=== PATIENT | male | born 1955 | race Caucasian/White ===

== ENCOUNTER 2024-05-12 13:58 | Outpatient (AMB) | payer MEDICARE, SELFPAY ==
--- NOTE | 2024-05-12 14:28 | HO.SPINEOV ---
Intake Visit Reasons: spinal stenosis Intake Note: Mr. Mcdonald is here today c/o numbness on both feet and Low back pain. 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 He is a pleasant 68-year-old male who is recently retired from a lifetime career working at a [employer]. He comes in today with a chief complaint of low back pain and difficulty with activity/ambulation. He states that this has worsened over the course of the past year, but has been ongoing for several years. He denies any radicular/shooting pains into his bilateral lower extremities. It is now to the point where he feels fatigued/tired and experiences pain in his low back when he completes his activities of daily living. This includes grocery shopping, dishes, and cooking. Thankfully he is still able to push through the pain and complete these activities, but is very disruptive to his life. He does report a previous history of spine surgery, and states that he had 2 lumbar microdiskectomy completed 1 at a hospital in [place] and 1 at [facility]. He states that the level for both of these microdiskectomies was L5-S1 (will have [facility] staff obtain [facility] records). He has tried several medications in an effort to mitigate the pain including NSAIDs and muscle relaxers. He has seen a chiropractor and felt as though this was not helpful for him. He has been to physical therapy in the past but has not been for this injury as of yet. PMH: Hyperlipidemia, hypertension, AFib on clopidogrel, AAA, asthma, cholelithiasis, chronic pancreatitis, history of 2 microdiskectomy at L5-S1. Laparoscopic appendectomy, cataract surgery, tonsillectomy. History of hepatitis-C treated with interferon, right-sided olecranon bursitis, osteoarthritis of right knee. Social hx: The patient denies any smoking or substance use. Medications: Albuterol, aspirin, atorvastatin, baclofen, clopidogrel, metoprolol, furosemide, Creon, famotidine, flecainide. Allergies: Codeine. Physical exam: The patient has 5/5 strength in his upper and lower extremities. He has no significant sensational deficits. His reflexes are 2+ intact. He is able to ambulate well and rises from a seated position without difficulty. (-) bilateral straight leg raise, (-) Willis's, (-) clonus. Imaging review: MRI of the lumbar spine completed at [facility] shows severe central canal and bilateral foraminal stenosis at L3-4. There is severe loss of disc height at L4-5 with type 2 Modic endplate changes seen at this level. Impression: Benji is a pleasant 68-year-old male who comes in today with a chief complaint of low back pain and difficulty with ADLs/ambulation. 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 He has a history of 2 previous microdiskectomy done many years ago by both an [facility] in [place], and [facility]. I plan to have our director medical surgical obtain his surgical records from [facility] in an effort to clarify exactly what surgery he did have. In the interim I will also be sending him for a course of physical therapy as he has not attempted this as of yet. With that being said he does have very severe stenosis at L3-4, and in cases such as this Dr. Lee would typically offer a patient a L3-4 lumbar decompression. We will need to discuss his chronic medical conditions and ultimately Dr. Lee will need to decide if he is a good candidate for surgery before we make a decision. Thank you for allowing us to care for your patient. The total time spent with this visit with this patient was 45 minutes reviewing history, physical exam, MRI imaging review, and implementation of treatment plan or further diagnostic testing Fly Lee MD,PhD [facility] Orders: Orders PT Evaluation and Treatment Today M48.062 - Spinal stenosis, lumbar region with neurogenic claudication Coding Level of Care Code New Pt Level 4 (32961) Diagnoses Spinal stenosis of lumbar region with neurogenic claudication M48.062
== END 2024-05-12 15:08 | disposition home or self-care (01) ==
PROVIDERS: PCP Internal Medicine; Referring Provider Internal Medicine; Visit Provider Physician Assistant
DX: M48.062 Spinal stenosis, lumbar region with neurogenic claudication (principal)
CPT/HCPCS: 99204

== ENCOUNTER → 2024-05-12 13:58 | Outpatient (BNVA) | payer MEDICARE, SELFPAY | PROVIDERS: PCP Internal Medicine; Visit Provider Physician Assistant | DX: M48.062 Spinal stenosis, lumbar region with neurogenic claudication (principal); M17.11 Unilateral primary osteoarthritis, right knee | CPT/HCPCS: 99202 ==

== ENCOUNTER → 2024-05-27 14:48 | Outpatient (BNVA) | payer MEDICARE, SELFPAY | PROVIDERS: PCP Internal Medicine; Visit Provider Physician Assistant | DX: M48.062 Spinal stenosis, lumbar region with neurogenic claudication (principal) | CPT/HCPCS: 99212 ==

== ENCOUNTER → 2024-10-30 11:15 | Outpatient (BNVA) | payer MEDICARE, SELFPAY | PROVIDERS: PCP Internal Medicine; Visit Provider Surgery Vascular Surgery | DX: I65.22 Occlusion and stenosis of left carotid artery (principal); I71.43 Infrarenal abdominal aortic aneurysm, without rupture | CPT/HCPCS: 99202 ==

== ENCOUNTER 2024-12-09 | Outpatient (REF) | payer MEDICARE, SELFPAY ==
--- NOTE | 2024-12-09 | ECG_ITS ---
Test Reason : PRE OP Blood Pressure : */* mmHG Vent. Rate : 92 BPM Atrial Rate : * BPM P-R Int : * ms QRS Dur : 128 ms QT Int : 440 ms P-R-T Axes : * -71 37 degrees QTcB Int : 544 ms Atrial fibrillation Left axis deviation Right bundle branch block Inferior infarct , age undetermined Abnormal ECG No previous ECGs available Referred By: Kaila Campbell Electronically Signed By: Magdiel Coughlin
[2024-12-09 10:28] VITALS: BP 111/86; PULSE 90; RESP 16; O2SAT 97; BMI 27.0
--- NOTE | 2024-12-09 10:59 | P.CONAN_ITS ---
HPI - Anesthesia Eval Consult details Narrative: 69yo M for Left Carotid Endarterectomy, pending cardiac eval No recent illness. Chronic cough d/t phlegm in esophagus No CP/SOB with regular activity. Rare albuterol for SOB. No dx asthma/COPD, but former smoker s/p AAA repair with stent 2020 [facility] Active Problems Active Problems: All Active Problems Abdominal aortic aneurysm (Acute) Left carotid stenosis (Acute) Spinal stenosis of lumbar region with neurogenic claudication (Acute) Past Medical History Medical History (Updated 12/09/24 @ 11:31 by Francisca Tadeo, RN) No natural teeth Carotid stenosis Leukocytosis Chronic diastolic (congestive) heart failure PAF (paroxysmal atrial fibrillation) Hx of edema AAA (abdominal aortic aneurysm) Cough History of blood transfusion (2022) History of GI bleed (2022) Presence of Watchman left atrial appendage closure device Chronic hiccoughs Spinal stenosis of lumbar region Dizziness History of transesophageal echocardiography (ASAD) (06/2024) Macular degeneration GERD (gastroesophageal reflux disease) HLD (hyperlipidemia) HTN (hypertension) Family History Family history of problems with anesthesia: No Surgical History Surgical History (Updated 12/09/24 @ 11:31 by Francisca Tadeo, KALEB) Hx of bilateral cataract extraction (~2019) History of esophagogastroduodenoscopy (EGD) Hx of colonoscopy Hx of appendectomy (1965) History of spinal surgery Hx of tonsillectomy (~1979) S/P endovascular aneurysm repair (~2020) History of Problems with Anesthesia: No Social History Social History Are you a primary managed care specialist to a significant other at home: No Do you presently have visiting nurse or other home services: No Comment: aware of trip hazard Patient Tobacco Use Status: Former Tobacco user Tobacco use type: Cigarette Smoked in Last 30 Days: No Use of substances other than those prescribed or required for medical reasons: Yes Substance Use Type Other:: gummies marijuana Substance Use Frequency: Occasionally Have you been hit, kicked, punched, or otherwise hurt by someone within the past year? If so, by whom?: No Are you DNR?: No Advance Directives: No (will bring dos) Advance Directives Information Provided: No Advance Directives on File: No Recently lost weight without trying: No Poor oral hygiene: Yes (no teeth) Meds Allergies Allergy/AdvReac Type Severity Reaction Status Date / Time codeine AdvReac Severe Nausea and Verified 12/09/24 11:31 Vomiting Opioids - Morphine Analogues AdvReac Severe Nausea and Verified 12/09/24 11:31 Vomiting Home Medications ?Medication ?Instructions ?Recorded ?Confirmed ?Last Taken ?Type atorvastatin 80 mg tablet 80 mg PO BEDTIME 10/30/24 12/08/24 Unknown History famotidine 40 mg tablet 40 mg PO BEDTIME 10/30/24 12/08/24 Unknown History flecainide 100 mg tablet 100 mg PO Q12H 10/30/24 12/08/24 Unknown History furosemide 20 mg tablet 20 mg PO BID 10/30/24 12/08/24 Unknown History [id number] 1 cap PO QID 10/30/24 12/08/24 Unknown History 12,000-38,000-60,000 unit capsule,delayed rel (Creon) metoprolol succinate 50 mg 25 mg PO DAILY 10/30/24 12/08/24 Unknown History tablet,extended release 24 hr ferrous sulfate 325 mg (65 mg 325 mg PO DAILY 12/08/24 12/08/24 Unknown History iron) tablet (Iron (ferrous sulfate)) albuterol sulfate 90 mcg/actuation 2 puff inhalation Q4-6H PRN 12/09/24 12/09/24 Unknown History aerosol inhaler Shortness Of Breath Or Wheezing aspirin 81 mg chewable tablet 81 mg PO DAILY 12/09/24 12/09/24 Unknown History baclofen 10 mg tablet 10 mg PO TID 12/09/24 12/09/24 Unknown History vit C 250 mg-vit E 90 mg-zinc 40 1 tab PO BID 12/09/24 12/09/24 Unknown History mg-copper 1 [id number] capsule (PreserVision AREDS-2) Exam Height,Weight and Vital Signs: Height 5 ft 10 in Weight 85.275 kg Last Vital Signs Pulse 90 12/09/24 10:28 Resp 16 12/09/24 10:28 BP 111/86 12/09/24 10:28 Pulse Ox 97 12/09/24 10:28 O2 Del Method Room Air 12/09/24 10:28 Airway Loose/Missing/Broken Teeth: Yes (edentulous) Heart: RRR Lungs: CTAB Assessment and Plan Assessment Anesthesia Assessment: Anesthesia Plan Discussed and PAT Visit Final Anesthetic Review Family History of Problems with Anesthesia: No History of Problems with Anesthesia: No
[2024-12-09 13:28] LABS: Hematocrit 33.1 % (42.0-52.0); INTERNATIONAL NORM RATIO 1.2 (0.9-1.1); Mean Corpuscular HGB Conc 30.2 g/dl (31.0-36.0); Mean Corpuscular Hemoglobin 24.7 pg (27.0-33.0); Mean Corpuscular Volume 81.7 fL (80.0-98.0); Mean Platelet Volume 10.2 fL (9.4-12.4); Platelet Count 173 X10*3/uL (160-400); Prothrombin Time 14.5 SEC (10.9-12.4); Red Blood Count 4.05 X10*6/uL (4.60-5.80); Red Cell Distribution Width 20.1 % (11.0-16.0); White Blood Count 10.2 X10*3/uL (4.8-10.8)
[2024-12-09 13:30] LABS: Partial Thromboplastin Time 39.6 SEC (26.0-36.8)
[2024-12-09 13:50] LABS: Anion Gap 14 (12-20); Blood Urea Nitrogen 12 mg/dL (9-16); Calcium 8.5 mg/dL (8.4-10.2); Carbon Dioxide 33 mmol/L (22-29); Chloride 103 mmol/L (96-108); Creatinine Clr Calc Pharmacy 82.5; Estimated Glomerular Filt Rate > 60; Glucose Random 100 mg/dL (60-115); Potassium 3.9 mmol/L (3.3-5.1); Sodium 146 mmol/L (135-145)
--- OUTSIDE RECORDS SUMMARY | 2025-03-19 13:41 | XMS_ITS | Data Portability ---
Author Organization [facility], Telehealth Patient Home Address [address] [place] [address] Assessment Encounter Date Assessment Date Assessment LastModified by Organization Details LastModified Time 02/11/2025 02/11/2025 [address] [place] [address] (MEDICAL SERVICES ASSISTANT) MDM MODERATE MUST MEET 2 OUT OF 3 ELEMENTS: PROBLEMS, DATA OR RISK ELEMENT 1: PROBLEMS ADDRESSED 1 OR MORE CHRONIC ILLNESS WITH EXACERBATION OR 2 OR MORE STABLE CHRONIC ILLNESSES OR 1 UNDIAGNOSED NEW PROBLEM OR 1 ACUTE ILLNESS W/SYMPTOMS OR 1 ACUTE COMPLICATED INJURY ELEMENT 2: DATA MUST MEET 1 OF 3 CATEGORIES CATEGORY 1: REVIEW OF PRIOR EXTERNAL NOTES, REVIEW OF RESULTS, ORDERING OF EACH TEST, ASSESSMENT REQUIRING INDEPENDENT HISTORIAN OR CATEGORY 2: INDEPENDENT INTERPRETATION OF TESTS BY ANOTHER PHYSICIAN OR SPECIALIST OR CATEGORY 3: DISCUSSION OF MGT OR TEST INTERPRETATION W/EXTERNAL PHYSICIAN OR SPECIALIST ELEMENT 3: RISK RISK OF COMPLICATIONS AND/OR MORBIDITY OR MORTALITY OF PATIENT MANAGEMENT PROVIDER MUST THOROUGHLY DOCUMENT EACH ELEMENT THAT IS COVERED Not available 02/11/2025 16:55:09 Plan of Treatment Reminders Order Date Submit Date Provider Last Modified By Organization Details Last Modified Time Details Appointments FOLLOW UP 15 2024 09:30A M BRUCE CUELLAR Not available Not available Not available Lab None recorded. Referral orthopedi c surgeon referral 2023 024 mesha Lee MD, [address] [place] [address] [place], [address], 08/27/2024 08:54:22 vascular surgeon referral 2023 024 mesha [facility], Rae Richards, [place], [address], 08/27/2024 08:54:22 Procedures None recorded. Surgeries None recorded. Imaging MRI, lumbar spine, w/o contrast - hx of lumbar spine surgery 2023 024 hrubner Not available 03/31/2024 10:30:13 Medication Orders oxycodone 5 mg tablet 2023 025 [id number], [address], [place], [place], [id number], 01/14/2025 15:19:57 Patient TargetsNo targets recorded. Patient Instructions Encounter Date Encounter Id Patient Instructions Last Modified By Organization Details Last Modified Time 02/11/2025 [id number] leg and ankle edema: care instructions Not available 02/11/2025 16:59:34 high blood pressure: care instructions Not available 02/11/2025 16:59:34 learning about high blood pressure Not available 02/11/2025 16:59:34 atrial fibrillation: care instructions Not available 02/11/2025 16:59:34 Reason for Referral Vascular Surgeon Referral fo r Carotid artery stenosis sig blockage per ER, needs urgent consult Referring Physician: Kaet Calvillo, Internal Medicine, Encounter Date: 08/25/2024 Orthopedic Surgeon Referral for Neck pain finished PT, having neck and low back pain, no change Referring Physician: Kate Calvillo, Internal Medicine, Encounter Date: 08/25/2024 Results Created Date Observation Date Name Description Value Unit Range Abnormal Flag Note LastModifiedBy Organization Detail LastModifiedTime 02/29/20 24 02/28/2024 XR, chest , 2 view No observ ation record ed. [address], [address], 02/29/2024 10:27:20 03/19/20 24 03/19/2024 US, khoa x, yosi s, lower extre mity, unila teral No observ ation record ed. [address], [address], 03/19/2024 11:45:02 03/22/20 24 03/19/2024 XR, elbow , 3 or more view No observ ation record ed. [email or web address] [address], [address], 03/24/2024 14:51:08 04/30/20 24 04/28/2024 MRI, lumba r spine , w/o contr ast No observ ation record ed. [email or web address] [address], [place], [address], 08/25/2024 15:24:05 10/06/19 25 08/04/2024 CT, angio gram, head, w/wo contr ast No observ ation record ed. [email or web address] [address], [address], 10/06/2024 11:04:51 12/09/19 25 12/05/2024 PET, myoca rdial perfu ibis No observ ation record ed. [email or web address] [facility] [address], [place], [address], 12/08/2024 15:00:35 03/03/20 25 02/26/2025 mobil e cardi ac telem etry (PROC ) No observ ation record ed. [facility] [address], [place], [address], 03/03/2025 15:50:09 Result Notes None recorded. Problems Name Problem SNOMED Code Status Onset Date Resolution Date Notes Provider Name and Address Organization Details Recorded Time Aneurysm of left iliac artery 436551634847 68593 Active 2018 also right Not Available [facility] 3 13:19:47 Metabolic dysfuncti on-associ ated steatohep atitis 959675443 Active 2018 Not Available [facility] 3 13:19:48 Hypertens amrita disorder 71041290 Active 2018 Not Available [facility] 3 13:19:48 Serum cholester ol borderlin e high 839450819 Active 2018 Not Available [facility] 3 13:19:48 Exocrine pancreati c insuffici ency 00937934 Active 2018 Not Available [facility] 3 13:19:48 Swelling of upper limb 615672815 Active 2021 Not Available [facility] 3 13:19:48 Closed fracture of triquetra l bone of left wrist 898004559273 02280 Active 2021 Not Available [facility] 3 13:19:47 Dyspnea 857874461 Active 2021 Not Available [facility] 3 13:19:48 Hyperchol esterolem ia 91832660 Active 2021 Not Available [facility] 3 13:19:47 Essential hypertens ion 32499963 Active 2021 Not Available [facility] 3 13:19:48 Atrial fibrillat ion 71103890 Active 2021 Not Available [facility] 3 13:19:48 Scapholun ate advanced collapse 139522284 Active 2021 Not Available [facility] 3 13:19:48 Nodule of lung 344668100 Active 2021 Not Available [facility] 3 13:19:48 Retching 45297157 Active 2021 Not Available [facility] 3 13:19:48 Chronic pancreati tis 571311631 Active 2021 Not Available [facility] 3 13:19:48 Osteoarth ritis of left knee joint 555491055522 109 Active 2021 Not Available [facility] 3 13:19:48 Osteoarth ritis of right knee joint 737636011721 100 Active 2021 Not Available [facility] 3 13:19:48 Cholelith iasis without obstructi on 37356612 Active 2021 Not Available [facility] 3 13:19:48 Gallstone 753736554 Active 2021 Not Available [facility] 3 13:19:48 Anemia 039839622 Active 2022 Not Available [facility] 3 13:19:48 Pain of right knee joint 548472605071 100 Active 2022 Not Available [facility] 3 13:19:48 Asthma 448319910 Active 2022 Not Available [facility] 3 13:19:47 Acute respirato ry failure 46115627 Active 2023 BRUCE CUELLAR [address] [place], [address], [facility] 4 15:18:10 Community acquired pneumonia 595562137 Active 2023 BRUCE CUELLAR [address] [place] [address], [address], [facility] 4 15:18:19 Paroxysma l atrial fibrillat ion 221782484 Active 2023 BRUCE CUELLAR [address] [place] [address], [address], [facility] 5 15:33:04 Pleural effusion 86733308 Active 2023 BRUCE CUELLAR [address] [place] [address], [address], [facility] 4 15:20:04 Chronic hiccup 544140266 Active 2023 BRUCE CUELLAR [address] [place] [address], [address], [facility] 4 11:13:37 Paralysis of diaphragm 35748320 Active 2023 BRUCE CUELLAR [address] [place] [address], [address], [facility] 4 10:27:56 Celluliti s of lower leg 288372301 Active 2023 BRUCE CUELLAR [address] [place] [address], [address], [facility] 4 11:36:06 Hypokalem ia 95756953 Active 2023 BRUCE CUELLAR [address] [place], [address], [facility] 4 11:38:34 Sepsis due to urinary tract infection 569357716 Active 2023 BRUCE CUELLAR [address] [place], [address], [facility] 4 11:39:49 Edema of lower extremity 840392121 Active 2023 BRUCE CUELLAR [address] [place], [address], [facility] 4 11:41:04 Pain of right elbow joint 365422249393 [address]39[address] Active 2023 BRUCE CUELLAR [address] [place] [address], [address], [facility] 4 11:46:41 Bursitis of olecranon of right elbow 856961180643 108 Active 2023 BRUCE CUELLAR [address] [place], [address], [facility] 4 14:51:44 Idiopathi c periphera l neuropath y 47014628 Active 2023 BRUCE CUELLAR [address] [place], [address], [facility] 4 10:34:44 Spinal stenosis of lumbar region 53901732 Active 2023 BRUCE CUELLAR [address] [place], [address], [facility] 4 14:46:39 Carotid artery stenosis 16240870 Active 2023 BRUCE CUELLAR [address] [place], [address], [facility] 4 15:06:48 Carotid artery stenosis 93134038 Active 2023 BRUCE CUELLAR [address] [place], [address], [facility] 4 15:07:32 Neck pain 01664285 Active 2023 BRUCE CUELLAR [address] [place], [address], [facility] 4 15:11:16 Degenerat ion of lumbar intervert ebral disc 94532250 Active 2023 BRUCE CUELLAR [address] [place], [address], [facility] 4 15:11:33 Acute kidney injury 57050272 Active 2024 BRUCE CUELLAR [address] [place], [address], [facility] 5 15:32:36 Celluliti s of left upper limb 289595623086 98020 Active 2024 BRUCE CUELLAR [address] [place], [address], [facility] 5 15:33:32 Acute on chronic systolic heart failure 786851726 Active 2024 Jamil Purcell DO [address] [place] [address], [address], [facility] 5 16:56:05 Open wound of left upper limb Active 2024 Jamil Purcell DO [address] [place] [address], [address], [facility] 5 16:59:03 Lyme disease 68518157 Active 2017 Not Available [facility] 3 13:19:48 Abdominal aortic aneurysm 904965678 Active 2017 Not Available [facility] 3 13:19:47 Viral hepatitis C 60738648 Active 2017 interf vinicio/ Not Available [facility] 3 13:19:48 Notes:Some problems listed i n Documents: #[id number], #[id number], #[id number], #[id number], #[id number], #[id number], #[id number], #[id number] could not be added to this patient's chart. Please review these documents and add these problems to the patient's chart manually as needed. Problem Notes None recorded. Procedures Surgical History Date Name Laterality Status Provider Name and Address Organization Details Recorded Time 024 Suture/Staple removal completed BRUCE CUELLAR [address] [place] [address], [address], [facility] 11/02/2023 11:31:34 022 Corticosteroid Injection completed Jamil Purcell DO [address] [place] [address], [address], [facility] 08/21/2022 12:33:56 022 Corticosteroid Injection completed Jamil Purcell DO [address] [place] [address], [address], [facility] 08/08/2022 16:53:30 019 Suture/Staple removal completed KIMMIE Montgomery [address] [place] [address], [address], [facility] 05/28/2019 09:20:[address] [facility] 12:08:14 [facility]/31/2019 12:08:14 [facility] 01/31/2019 12:08:14 Cataract Surgery [facility] 01/31/2019 12:08:14 Back [facility] 01/31/2019 12:08:14 Imaging Results None recorded. Procedure Notes None recorded. Medical Equipment None Reported. Allergies Allergen ID Allergen Name Allergen Category Reaction Reaction Severity Criticality Documentation Date Start Date Code Code System Note Provider Name and Address Organization Details Recorded Time 1156 codeine medicatio n Not available Not available Not available 01/23/2018 2670 RxNorm Roya fitzgerald ID - [facility] 8 08:41:43 Medications Name Sig Start Date Stop Date Status Note LastModified by Organization Details LastModified Time Prescripti on - Prior Authorizat ion Request 05/23 completed creon Not Available Not Available Not Available furosemide 40 mg tablet TAKE 1 TABLET BY MOUTH TWICE DAILY active Not Available Not Available No t Available atorvastat in 40 mg tablet TAKE 1 TABLET BY MOUTH EVERY DAY AT BEDTIME 01/14 completed Not Available Not Available Not Available atorvastat in 80 mg tablet TAKE 1 TABLET(80 MG) BY MOUTH EVERY NIGHT AT BEDTIME 2024 active Not Available Not Available Not Avai lable acetaminop hen 325 mg tablet 01/14 completed Not Available Not Available Not Available prednisone 10 mg tablet TAKE 50 MG DAILY FOR 2 DAYS THEN 40 MG DAILY FOR 2 DAY THEN 30MG DAILY FOR 2 DAY THEN 20MG DAILY FOR 2 DAY THEN 10 MG DAILY FOR 2 DAY 03/26 completed Not Available Not Available Not Available trazodone 50 mg tablet TAKE 1/2 TABLET(25 MG) BY MOUTH EVERY NIGHT NEEDED FOR SLEEP 2024 active Not Available Not Available Not Avai lable Stool Softener 100 mg capsule 01/23 completed Not Available Not Available Not Available ibuprofen 800 mg tablet TAKE 1 TABLET BY MOUTH EVERY 8 HOURS NEEDED FOR PAIN 01/14 completed Not Available Not Available Not Available metoprolol tartrate 100 mg tablet TAKE 1 TABLET BY MOUTH TWICE DAILY WITH FOOD active Not Available Not Available No t Available benzonatat e 200 mg capsule 03/19 completed Not Available Not Available Not Available metoprolol succinate ER 50 mg tablet,ext ended release 24 hr Take 2 tablets every day by oral route. 10/17 completed Not Available Not Available Not Available lisinopril 20 mg tablet TAKE 1 TABLET BY MOUTH EVERY DAY 10/13 completed Not Available Not Available Not Available famotidine 40 mg tablet TAKE 1 TABLET BY MOUTH DAILY AT BEDTIME active Not Available Not Available No t Available prednisone 20 mg tablet TAKE 1 TABLET BY MOUTH EVERY DAY FOR 3 DAYS 08/25 completed Not Available Not Available Not Available clopidogre l 75 mg tablet TAKE 1 TABLET BY MOUTH EVERY DAY 2023 active Not Available Not Available Not Avai lable sulfametho xazole 800 mg-trimeth oprim 160 mg tablet TAKE 1 TABLET BY MOUTH TWICE DAILY 03/26 completed Not Available Not Available Not Available aspirin 81 mg tablet,del ayed release TAKE 1 TABLET BY MOUTH DAILY active Not Available Not Available No t Available tramadol 50 mg tablet TAKE 1 TABLET BY MOUTH EVERY 6 HOURS FOR 7 DAYS NEEDED 03/26 completed Not Available Not Available Not Available ketorolac 0.5 % eye drops PUT 1 DROP IN LEFT EYE THREE TIMES A DAY FOR 3 WEEKS FOLLOWING SURGERY ON 05/23 completed Not Available Not Available Not Available baclofen 10 mg tablet TAKE 1 TABLET BY MOUTH THREE TIMES DAILY 2024 active Not Available Not Available Not Avai lable ibuprofen 400 mg tablet 01/23 completed Not Available Not Available Not Available flecainide 100 mg tablet TAKE 1 TABLET BY MOUTH EVERY 12 HOURS NEEDED 01/14 completed Not Available Not Available Not Available metoprolol tartrate 50 mg tablet TAKE 1 TABLET BY MOUTH TWICE DAILY NO 90 DAY SUPPLY NEEDS APPT CALL OFFICE 01/14 completed Not Available Not Available Not Available omeprazole 20 mg capsule,de layed release TAKE 1 CAPSULE BY MOUTH TWICE DAILY 30 TO 60 MINUTES BEFORE A MEAL 03/12 completed Not Available Not Available Not Available folic acid 1 mg tablet TAKE 1 TABLET BY MOUTH DAILY active Not Available Not Available No t Available furosemide 20 mg tablet TAKE 1 TABLET BY MOUTH TWICE DAILY 01/14 completed Not Available Not Available Not Available gabapentin 100 mg capsule 01/23 completed Not Available Not Available Not Available metoprolol succinate ER 25 mg tablet,ext ended release 24 hr TAKE 0.5 TABLETS BY MOUT DAILY 10/17 completed Not Available Not Available Not Available levofloxac in 750 mg tablet 07/11 completed Not Available Not Available Not Available albuterol sulfate HFA 90 mcg/actuat ion aerosol inhaler INHALE 2 PUFFS BY MOUTH EVERY 4 HOURS 2023 active Not Available Not Available Not Avai lable Vitamin B-1 100 mg tablet TAKE 1 TABLET BY MOUTH DAILY active Not Available Not Available No t Available doxycyclin e hyclate 100 mg tablet TAKE 1 TABLET BY MOUTH TWICE DAILY FOR 7 DAYS 03/26 completed Not Available Not Available Not Available amoxicilli n 875 mg-potassi um clavulanat e 125 mg tablet TAKE 1 TABLET BY MOUTH TWICE DAILY UNTIL FINISHED 01/14 completed Not Available Not Available Not Available oxycodone 5 mg tablet TAKE 1 TABLET BY MOUTH THREE TIMES DAILY FOR 7 DAYS NEEDED 01/14 completed Not Available Not Available Not Available cholecalci ferol (vitamin D3) 25 mcg (1,000 unit) tablet TAKE 1 TABLET BY MOUTH DAILY active Not Available Not Available No t Available FeroSul 325 mg (65 mg iron) tablet TAKE 1 TABLET BY MOUTH EVERY MORNING WITH BREAKFAST active Not Available Not Available No t Available Creon 12,000-38, 000-60,000 unit capsule,de layed release TAKE 1 CAPSULE BY MOUTH FOUR TIMES DAILY active Not Available Not Available No t Available Eliquis 5 mg tablet TAKE 1 TABLET BY MOUTH TWICE DAILY 03/12 completed Not Available Not Available Not Available Pancreaze 21,000 unit-54,70 0 unit-83,90 0 unit capsule,de layed release TAKE 1 CAPSULE BY MOUTH THREE TIMES A DAY 01/25 completed Not Available Not Available Not Available metoprolol succinate ER 100 mg capsule sprinkle, ext. release 24 hr Take 1 capsule every day by oral route. 02/11 completed Not Available Not Available Not Available aspirin 81 mg capsule Take 1 capsule every day by oral route. 01/14 completed Not Available Not Available Not Available albuterol 90 mcg-budeso nide 80 mcg/actuat ion HFA aerosol inhaler 2 puffs every 4 hours prn 2023 active Not Available Not Available Not Avai lable Vitals Date Recorded Body height Body mass index (BMI) Body weight Heart rate Oxygen saturation Oxygen saturation in Arterial blood by Pulse oximetry Systolic blood pressure Diastolic blood pressure Provider Name and Address Organization Details Last Updated DateTime 5 177.8 cm 27.4 kg/m2 93709.2 2 g 68 /min 95 % 95 % 104 mm[Hg] 62 mm[Hg] Ruthie Gipson [place] - [facility] 5 10:25:36 Date Recorded Body height Body mass index (BMI) Body weight Heart rate Oxygen saturation Oxygen saturation in Arterial blood by Pulse oximetry Systolic blood pressure Diastolic blood pressure Provider Name and Address Organization Details Last Updated DateTime 5 177.8 cm 27.2 kg/m2 14615.1 9 g 86 /min 86 % 86 % 118 mm[Hg] 78 mm[Hg] Ruthie Gipson [facility] 5 15:10:31 Date Recorded Body height Body mass index (BMI) Body weight Oxygen saturation Oxygen saturation in Arterial blood by Pulse oximetry Heart rate Systolic blood pressure Diastolic blood pressure Provider Name and Address Organization Details Last Updated DateTime 5 177.8 cm 27.6 kg/m2 39951.2 5 g 100 % 100 % 115 /min 102 mm[Hg] 58 mm[Hg] Consuelo Cole [facility] 5 16:31:11 Date Recorded Body height Body mass index (BMI) Body weight Heart rate Oxygen saturation Oxygen saturation in Arterial blood by Pulse oximetry Systolic blood pressure Diastolic blood pressure Provider Name and Address Organization Details Last Updated DateTime 4 177.8 cm 30.1 kg/m2 57896.4 g 56 /min 97 % 97 % 114 mm[Hg] 54 mm[Hg] Jordan Hall [facility] 4 10:27:07 Date Recorded Body height Body mass index (BMI) Body weight Heart rate Oxygen saturation Oxygen saturation in Arterial blood by Pulse oximetry Systolic blood pressure Diastolic blood pressure Provider Name and Address Organization Details Last Updated DateTime 4 177.8 cm 29.6 kg/m2 90521.0 3 g 69 /min 97 % 97 % 102 mm[Hg] 58 mm[Hg] Brittany Marcos [facility] 4 14:54:30 Social History Question Answer Notes LastModified by Organizat ion Details LastModified Time Tobacco Smoking Status Former Smoker Not Available [facility] 07/27/2020 03:36:24 What Was The Date Of Your Most Recent Tobacco Screening? 02/11/2025 [email or web address] Information not available 02/11/2025 Sex: Unknown Functional Status Question Answer Note LastModified by Organization D etails LastModified Time Do you or have you ever used any other forms of tobacco or nicotine? No [email or web address] Information not available 01/25/2022 Mental Status None recorded. Family History Nothing Reported. Medical History Condition Response Coronary Artery Disease N Gout N Other N Kidney Stones N Blood Diseases N Blood Transfusion N COPD N Depression N Anxiety Disorder N Muscle, Joint, or Bone Problems N Obesity N Vision or Eye Problems N Arthritis N Polyps N Infertility N Mental Disorder N Cancer N Varicosities N Stroke N Headaches N Fibromyalgia N Kidney Disease N Heart Problems N Hospitalizations N Eating Disorder N Skin Problems N MRSA exposure N Constipation N Tuberculosis N Asthma N Hepatitis N Pulmonary Embolism N Chicken Pox N Autism Spectrum Disorder (ASD) N Breast Cancer N Lung Disease N Defects or Inherited Disease N Endometriosis N Bladder or Kidney Problems N High Cholesterol N Liver Disease N Allergies/Hayfever N Thyroid Problems N GI Problems N Anemia N Mental Illness N Diabetes N Ovarian Cancer N Seizures/Epilepsy N Congestive Heart Failure (CHF) N Eczema N Abuse/Domestic Violence N Diverticulitis N Reflux/GERD N Heart Disease N Hypertension N Osteoporosis N Immunizations Vaccine Type Date Status Note Provider Nam e and Address Organization Details Recorded Time COVID-19, mRNA, LNP-S, PF, 30 mcg/0.3 mL dose 1 completed Not Available [facility] 07/14/2023 13:19:48 COVID-19, mRNA, LNP-S, PF, 30 mcg/0.3 mL dose 1 completed Not Available [facility] 07/14/2023 13:19:48 COVID-19, mRNA, LNP-S, PF, 30 mcg/0.3 mL dose 1 completed Not Available [facility] 07/14/2023 13:19:48 influenza, unspecified formulation 1 completed Not Available [facility] 07/14/2023 13:19:48 zoster recombinant 1 completed Not Available [facility] 07/14/2023 13:19:48 Influenza, split virus, quadrivalent, preservative 0 completed Not Available [facility] 07/14/2023 13:19:48 Pneumococcal conjugate PCV 13 1 completed Not Available [facility] 07/14/2023 13:19:48 zoster, unspecified formulation 1 completed Not Available [facility] 07/14/2023 13:19:48 Past Encounters Encounter ID Performer Location Encounter Start Date Encounter Closed Date Diagnosis/Indication Diagnosis SNOMED-CT Code Diagnosis ICD10 Code Diagnosis Note [id number] DO [facility] [address] [place] [address],[facility] [place] [id number] 01/23/2018 13:47:03 01/23/2018 16:13:32 Closed fracture of multiple ribs 40137441 S22.42XD await results f/u Xray at [facility] 01/22/18 Hematoma of scalp 690776 004 S00.03XD tried to drain with 18 g needle, blood not free flowing, pt to use hot compresses , if no drainage, call. 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 continue AA meetings, offered other services, pt declines Jamil Purcell [facility] [address] [facility] [place] [address] 01/31/2019 12:03:39 02/03/2019 09:59:08 Hypertensive disorder 50790952 I10 Dyspnea 220380158 R06.02 Exocrine p ancreatic insufficiency 08304921 K86.81 [id number] Jamil Purcell [facility] [address] [facility] [place] [address] 03/25/2019 10:42:12 03/25/2019 11:21:20 Hypertensive disorder 99732821 I10 BP much better controlled Dyspnea 098047716 R06.02 Metabolic dysfunction-associate d steatohepatitis 009964845 K75.81 mildly elevated lft, s/p hcv treatment with inteferon Serum chol esterol borderline high 814982351 E78.00 RR 3.9 HDL 65 all else borderline Exocrine p ancreatic insufficiency 42299968 K86.81 was diagnosed clinically by my former colleague he was started on crean on with some improvemen t but continues to have mucous/jeremy rrhea periodical ly minimal etoh maybe 1-2 on weekends no h/o CF, chronic/ac chicken ranch pancreatit is or gastric/maryann wel resection [id number] Jamil Purcell [facility] [address] [facility],[place] [facility] , [place] [id number] 05/28/2019 09:00:48 05/28/2019 09:33:48 Hypertensive disorder [id number] I10 stable Scalp laceration 2120674 08 S01.01XD healing well continue scalp care Removal of cortez 68634 001 Z48.02 cortez removed without incident [id number] Jamil Purcell [facility] Internal [facility] [address] [facility] [address] 03/19/2020 09:00:52 03/19/2020 14:21:14 Essential hypertension 19603085 I10 will assess patient's BP at home before work and see if it is indeed lower at home if so no adjustment s need to be made if it is still high, will increase/c hange [place] medication s [id number] Jamil Purcell [facility] Internal [facility] [address] [facility], [place] [address] 12/03/2020 10:00:19 12/03/2020 10:41:21 Pre-surgery evaluation 468452039 Z01.818 The patient was seen in the office today for pre-op evaluation . All medical conditions on patient's problem list were addressed and are currently stable, no interventi on needed at this time. Based on history and physical performed, the patient is cleared for surgery. Essential hypertension 81188613 I10 BP at recheck was 130/80 and BP at home is stable patient HTN is controlled for surgery [id number] Jamil Purcell [facility] Internal [facility] [address] [facility], [place] [address] 05/23/2021 10:13:14 05/23/2021 16:24:13 Abdominal aortic aneurysm without rupture 17638721 I71.4 fu with vascular Solitary n odule of lung 566683539 R91.[address] Exocrine p ancreatic insufficiency 29225520 K86.81 fu with labs for pancreatic health [id number] Jamil Purcell [facility] Internal [facility] [address] [facility] [address] 07/11/2021 14:56:08 07/11/2021 16:00:28 Solitary nodule of lung 276513551 R91.[address] per prior CT Sepsis due to urinary tract infection 501512207 A41.51 finished PO abx from hospital d/cstable, resolved [id number] Jamil Purcell DO [facility] [address] [facility], [place] [address] 01/25/2022 14:16:06 01/30/2022 11:34:37 Active or passive immunization 795413418 Z23 up to date Adult heal th examination 663072740 Z00.00 BP excellent Swelling o f upper limb 553622849 R22.32 will fu with testing Closed fra cture of triquetral bone of left wrist 1540800232 1061188 S62.112A will fu with MRI Dyspnea 778943406 R06.02 will fu with XR, EKG (in office) and pro BNPmay be related to pain level patient is in, but heart rate is irregular on exam EKG perfromed in office by EDWINA Exocrine p ancreatic insufficiency 49374759 K86.81 fu with labs for pancreatic health Hypercholesterolemia 136 78123 E78.00 will refill meds at new pharmacy Essential hypertension 22311951 I10 BP is excellenth is HR Is elevated but in painwill fu with above testing Atrial fibrillation 4943 6004 I48.0 will have him fu in a few days [id number] Jamil Purcell [facility] [address] [facility],[place] [address] 01/27/2022 11:43:54 01/30/2022 15:50:02 Exocrine pancreatic insufficiency 02073332 K86.81 resent prescripti onwill fu with script this afternoon to make sure it is sent Atrial fibrillation 4943 6004 I48.19 will have him fu with cardio for discussion of ablation therapy for the patientwil l increase metoprolol Dyspnea 043437901 R06.02 improved from Sunday, his HR is downrepeat EKG, still in a fib, but normal ventricula r rate [id number] Jamil Purcell [facility] [address] [facility],[place] [address] 07/26/2022 13:42:04 07/26/2022 16:14:40 Retching 78765318 R11.11 will set up with GI given new symptoms and hx of pancreatit isalso has pancreatit is insufficie ncy as well, currently on creon Chronic pancreatitis 235 080361 K86.1 will check status of his biliary tract Atrial fibrillation 4943 6004 I48.19 will have him fu with cardio for discussion of ablation therapy for the patientwil l increase metoprolol Essential hypertension 79560879 I10 BP is excellenth is HR Is elevated but in painwill fu with above testing [id number] Jamil Purcell [facility] [address] [facility], [place] [address] 08/08/2022 16:05:42 08/08/2022 16:59:12 Osteoarthritis of left knee joint 1127896585 16644 M17.12 [place] [id number] Jamil Purcell [facility] Internal [facility] [address] [facility], [place] 7 08/21/2022 12:08:14 08/21/2022 13:52:32 Osteoarthritis of right knee joint 6086447866 30815 M17.11 ericka inj well rosa maria [id number] Jamil Purcell [facility] [address] [facility], [place] [address] 10/13/2022 14:48:14 10/13/2022 16:01:09 Cholelithiasis without obstruction 29416398 K80.20 will set up with for Dr. Burkett ([facility])hav ing gallbladde r removed Anemia 942479991 D50.0 good transfusio n Hypertensive disorder 38 060282 I10 [id number] Jamil Purcell [facility] [address] [facility], [place] [address] 10/17/2023 09:41:20 10/17/2023 15:21:04 Acute respiratory failure 73145245 J96.01 resolved Community acquired pneumonia 523313092 J18.8 resolved Paroxysmal atrial fibrillation 852969866 I48.0 stablemoni tored by cardio Abdominal aortic aneurysm 689123616 I71.40 s/p repair Pleural effusion 8090420 8 J90 resolved [id number] Jamil Purcell [facility] [address] [facility], [place] [address] 11/02/2023 11:07:25 11/05/2023 10:59:34 Removal of suture 68587136 Z48.02 all sutures removed Asthma 765184217 J45.20 stable [id number] Jamil Purcell [facility] [address] [facility],[place] [address] 03/12/2024 10:50:30 03/12/2024 11:54:56 Depression screening 866678257 Z13.31 low Sepsis due to urinary tract infection 522641679 A41.51 resolved Chronic pancreatitis 235 002504 K86.1 stable Cellulitis of lower leg 850911302 L03.116 start on doxy and pred as prescribed Hypokalemia 95204241 E87 .6 will recheck levels Edema of l ower extremity 492852570 R60.0 as needed for the pain Chronic hiccup 126548475 R06.6 given script to havegettin g scheduled for the sniff test [id number] Jamil Purcell [facility] [address] [facility], [place] [address] 03/19/2024 11:36:23 03/19/2024 13:53:47 Pain of right elbow joint 9178757921 9680849 M25.521 agreed to XRstill currently on the abx and steroids, no change in treatmentw ill not drain hematoma, he is [facility] 584474757 Z91.81 Garzon Score 60 [id number] Jamil Purcell [facility] [address] [facility] [address] 03/26/2024 10:19:58 03/26/2024 13:32:16 Depression screening 587972957 Z13.31 low Idiopathic peripheral neuropathy 30149195 G60.3 agreed to immediate f/u with MRI as this an acute presentati on over just 24 hours [id number] Jamil Purcell [facility] Internal [facility] [address] [facility] [address] 08/25/2024 14:48:35 08/25/2024 15:25:47 Carotid artery stenosis 57838128 I65.23 will set up with endovascul ar surgeon Neck pain 12259968 M54.2 stable today Degenerati on of lumbar intervertebral disc 03904413 M51.369 given short course of oxycodoneh as a f/u with ortho for his pre op for his R knee replacemen t [id number] Jamil Purcell [facility] [address] [facility],[place] [address] 09/29/2024 10:18:39 09/29/2024 10:42:12 Pre-surgery evaluation 156775274 Z01.818 The patient was seen in the office today for pre-op evaluation . All medical conditions on patient's problem list were addressed and are currently stable, no interventi on needed at this time. Based on history and physical performed, the patient is cleared for surgery. Essential hypertension 23852398 I10 BP is excellent Atrial fibrillation 4943 6004 I48.19 stable [id number] Jamil Purcell [facility] [address] [facility] [address] 01/14/2025 14:48:15 01/14/2025 16:37:05 Acute kidney injury 55348808 N17.9 resolved Paroxysmal atrial fibrillation 050870802 I48.0 stablemoni tored by cardio Cellulitis of left upper limb 1559465567 3336605 L03.114 [id number] [facility] [address] [facility],[place] [address] 02/11/2025 16:18:33 02/13/2025 08:10:29 Depression screening 919161319 Z13.31 neg Atrial fibrillation 4943 6004 I48.19 currently stable but is on a heart monitor Acute on c hronic systolic heart failure 294111546 I50.23 impressed upon him the need for close compliance with meds and to alertwith wgt Edema of l ower extremity 079720310 R60.0 none stable Essential hypertension 39526237 I10 stable no issues Open wound of left upper limb 2709680779 7106 S41.102A getting better followed by wound clinic Health Concerns Section Related Observation LastModified by Organization Detai ls LastModified Time None Recorded Concern Status LastModified by Organization Details LastModified Time None Recorded Advance Directives Directive None Recorded Payers Insurance Date Sequence Insurance Name Policy Number Policy Calderon Covered Member ID Calderon Member ID Guarantor Name 01/14/2025 1 LUIS [id number] Benji Mcdonald [id number] Benji Mcdonald 02/08/2025 1 [facility] (MEDICARE REPLACEMENT/ ADVANTAGE - PPO) [id number] Benji Mcdonald [id number] Benji Mcdonald Notes Date Note Type Note Provider Name and Address Organization Details Recorded Time 4 text/html c/o numbness in the feet the patient reports developing acute onset numbness in the feet, both the same sensation no difference in amount from either footthe patient reports that he wasn't doing anything unusualno trauma or injurystarted , woke up to completely numb feet exam reveals complete loss of sensation to soft, sharp, temperature and pressurepatient could not feel the q tip at all, either side, nor could he feel the pressure, could not pinpoint the location of where it was touching when asked while he wasn't looking significant in the top of the bilateral feet, both ankles and distal anterior reese bilaterallysome sensation in the sides, laterally of the feethx of lumbar spine surgery and degenerative changes agreed to MRI given the presentation it is probably an acute onset change in his spine around L4 to L5 and L5 to S1 where he had the surgery down patient agrees to plan also given the number for othro for his elbow, swelling is down BRUCE CUELLAR [address] [place], [address], [facility] 03/26/2024 10:44:48 4 text/html hospital d/c the patient is doing well over allthe patient needs note sent to neurosurg for f/u since his back and neck pain hasn't improve will give pain medication for acute flare up needs f/u with carotid f/u with endovascularnew referral placed has been stopped on the warfarin has f/u with ortho for the knee replacement and will be getting his teeth removed prior to the total joint replacement BRUCE CUELLAR [address] [place], [address], [facility] 08/25/2024 15:25:31 5 text/html Pre-OpReported bypatient.Surgery to be Performed:Right Total Knee Replacement with Dr. Atkinson through [facility] Orthopedics Context/Condition Being Addressed:total joint replacement Location:right knee Risk Factorsno cognitive impairment; no functional impairment; no malnutrition; no frailty; able to climb a flight of stairs (exercise capacity>4 METS); no obstructive sleep apnea; non-smoker; no alcohol misuse; no illicit drug use; no chronic cardiopulmonary condition; not obese;chronic cardiopulmonary condition; controlled atrial fibrillation (not on a blood thinner) Anesthesia hx:no hx of anesthesia complications; no allergy to anesthetic agents; no family history of anesthesia complications Functional Ability:able to walk up stairs; able to perform heavy work around the house; no difficulty walking up hills; able to walk 4 mph Post-Op Support:adequate assistance at home (GF) BRUCE CUELLAR [address] [place] [address], [phone], [facility] 09/29/2024 10:39:56 5 text/html hospital d/c the patient reports that he is doing well after d/c the patient arm is currently wrapped around the left armthe patient reports that his ROM and function is baseline, no obvious neuro deficits the patient is increased on the 100 mg of metoprolol for his a fib, has f/u with cardio for starting him on a holter monitor has MAC and malnutrition, patient has been grieving the loss of his son who committed suicidethe patient notes the lack of eating and moving probably contributed to him falling the patient is doing well the patient has fu with ID and cardio the patient has no questions meds list fixed BRUCE CUELLAR [address] [place], [address], [facility] 01/14/2025 15:34:19 5 text/html here since hospitalizationfor rapid afib with heart decompensation and acute pulm edema had a skin complication from an IV fluid (?heparin) this wa s a major breakdown he is seeing wound dr and it is down to size of a half dollar from tennis ball diameter Jamli Purcell, [address] [place], [address], [place] [facility] 02/11/2025 17:00:02
== END 2024-12-09 00:01 | disposition home or self-care (01) ==
LOC: HO.PAT
PROVIDERS: Nurse Practitioner; PCP Internal Medicine; Visit Provider Surgery Vascular Surgery
DX: Z01.818 Encounter for other preprocedural examination (principal); I65.22 Occlusion and stenosis of left carotid artery
CPT/HCPCS: 36415; 80048; 85027; 85610; 85730; 86850; 86900; 86901; 93005

== ENCOUNTER → 2024-12-09 11:24 | Outpatient (BNV) | payer MEDICARE, SELFPAY | PROVIDERS: Admitting Provider Surgery Vascular Surgery; PCP Internal Medicine; Visit Provider Internal Medicine Cardiovascular Disease | DX: I48.91 Unspecified atrial fibrillation (principal); I45.10 Unspecified right bundle-branch block | CPT/HCPCS: 93010 ==